=== PATIENT | female | born 1985 | race Two or more races ===

== ENCOUNTER 2016-10-13 17:37 | Emergency (ER) | payer MEDICAID ==
[~2016-10-13] VITALS: Ht 165.1 cm; Wt 65.8 kg
[2016-10-13 17:55] VITALS: BP 147/92
[2016-10-13 18:06] LABS: APPEARANCE,URINE CLEAR; KETONES,URINE NEGATIVE (NEGATIVE); LEUKOCYTE ESTERASE ,URINE 1+ (NEGATIVE); NITRITE,URINE NEGATIVE (NEGATIVE); PH,URINE 6 (4.5-8.0); PROTEIN,URINE NEGATIVE (NEGATIVE); UROBILINOGEN,URINE NORMAL MG/DL (0.0-1.0)
[2016-10-13 18:28] LABS: BACTERIA,URINE FEW /HPF; SQUAMOUS EPITHELIAL CELL,UR FEW /LPF (NONE/OCC); WBC,URINE 0-2 /HPF (0 - 2)
--- NOTE | 2016-10-13 18:43 | Emergency Room Report ---
History of Present Illness General Chief Complaint: Abdominal Pain Source: Patient Present Illness HPI 31YOF walk-in with 2 days "bloating and gas" making loud noises in stomach. Denies abd pain, n/v/, diarrhea, fever/chills No previous surgery No other medical problems Eats a lot of "fast food." Didnt try OTC meds Denies urinary complaints Allergies: Coded Allergies: No Known Allergies (Unverified , 10/13/16) Patient History Past Medical History: none Past Surgical History: none Pertinent Family History: none Social History: Denies: alcohol use, drug use, smoking Now: No Immunizations: UTD Reviewed Nursing Documentation: PMH: Agreed, PSxH: Agreed Nursing Documentation-PMH Past Medical History: No Stated History Review of Systems All Other Systems: negative except mentioned in HPI Physical Exam Vital Signs Date Time Temp Pulse Resp B/P Pulse Ox O2 Delivery O2 Flow Rate FiO2 10/13/16 17:39 98.2 82 20 160/79 99 Room Air Sp02 EP Interpretation: reviewed, normal General Appearance: normal inspection, well appearing, no apparent distress, alert, GCS 15, non-toxic Head: normocephalic, atraumatic Eyes: bilateral eye EOMI, bilateral eye PERRL ENT: normal ENT inspection, hearing grossly normal, normal voice Neck: normal inspection, full range of motion, supple, no bony tend Respiratory: normal inspection, lungs clear, normal breath sounds, no respiratory distress, no retraction, no wheezing Cardiovascular #1: regular rate, rhythm, no edema Gastrointestinal: normal inspection, normal bowel sounds, non tender, soft, no guarding, no hernia Genitourinary: no CVA tenderness Musculoskeletal: normal inspection, back normal, normal range of motion, Nishant' s Sign negative Neurologic: normal inspection, alert, oriented x3, responsive, senior investment manager III-XII nml as tested, motor strength/tone normal, speech normal Psychiatric: normal inspection, judgement/insight normal, mood/affect normal Skin: normal inspection, normal color, no rash Lymphatic: normal inspection Medical Decision Making Diagnostic Impression: Primary Impression: Bloating ER Course UA negative for , urine Hematuria, ?early menstrual period Improved with PO simethicone, pepcid VSS. Afebrile No focal abd pain Low surgical history Rx Simethicone, pepcid Last Vital Signs Date Time Temp Pulse Resp B/P Pulse Ox O2 Delivery O2 Flow Rate FiO2 10/13/16 17:55 98.2 96 19 147/92 100 Room Air Status: improved Disposition: HOME, SELF-CARE Scripts Famotidine (PEPCID) 20 Mg Tablet 20 MG ORAL BID for 7 Days, #14 TAB 0 Refills Prov: DANA GARNICA M.D. 10/13/16 Simethicone* (SIMETHICONE*) 80 Mg Tab.chew 80 MG ORAL Q8H Y for GAS PAIN for 7 Days, #20 TAB 0 Refills Prov: DANA GARNICA M.D. 10/13/16 DANA GARNICA M.D. Oct 13, 2016 18:43
[2016-10-13] MEDS ORDERED: SIMETHICONE80 MG ORAL (18:44)
[2016-10-13] MEDS ORDERED: PEPCID20 MG ORAL (18:44)
[2016-10-13] MEDS ORDERED: Simethicone 80mg tab ORAL ONE (18:45)
[2016-10-13 19:03] VITALS: BP 146/90
== END 2016-10-13 19:03 | disposition home or self-care (01) ==
LOC: EMR 18:45
DX: R14.0 Abdominal distension (gaseous) (principal)
CPT/HCPCS: 81003; 81025; 99284